=== PATIENT | male | born 1960 | race Caucasian/White ===

== ENCOUNTER 2018-03-24 01:54 | Outpatient (CLI) | payer BC, SELFPAY ==
[2018-03-25 10:10] LABS: PSA, Screening 1.3 ng/ml (0-3.5)
== END 2018-03-24 02:14 ==
PROVIDERS: PCP Emergency Medicine; Visit Provider Emergency Medicine
DX: Z12.5 Encounter for screening for malignant neoplasm of prostate (principal); N40.0 Benign prostatic hyperplasia without lower urinary tract symptoms
CPT/HCPCS: 36415; 84153

== ENCOUNTER 2019-04-01 02:15 | Outpatient (CLI) | payer BC, SELFPAY ==
[2019-04-01 11:36] LABS: Calculated LDL 119 mg/dL; Cholesterol 189 mg/dL (50-200); HDL Cholesterol 59 mg/dL (40-60); Triglyceride 56 mg/dL (30-150)
== END 2019-04-01 02:35 ==
PROVIDERS: PCP Emergency Medicine; Visit Provider Emergency Medicine
DX: Z00.00 Encounter for general adult medical examination without abnormal findings (principal); Z13.220 Encounter for screening for lipoid disorders
CPT/HCPCS: 36415; 80061

== ENCOUNTER 2019-06-20 09:08 | Day surgery (SDC) | payer BC, SELFPAY ==
--- NOTE | 2019-06-20 06:58 | W.COLOREPORT ---
Date of service: 06/20/19 Time of Service: 10:50 Colonoscopy Report Date of procedure: 06/20/19 Pre-op diagnosis general: Hx of polyps Post-op diagnosis procedure note: same (and mild diverticulosis) Procedure: Colonoscopy with polypectomy Surgeon: Asia Hanley Anesthesia proc note operative: other (General/ ASA 2/ Kia Allen CRNA) Estimated blood loss (mL): 3 Pathology: other (Transverse and descending polyp) Complications: None Disposition: same day Indications: 59 y/o male with history of BPH and anxiety presents for colonoscopy screening pre-op. His last screening was in 2013, which was remarkable for tubular adenoma. He denies a family history of colon cancer. He denies any changes in bowel habits including bloody or black tarry stools, abdominal pain, diarrhea or constipation. He denies constitutional symptoms. Denies use of marijuana or any other recreational or illegal drugs. Risks, benefits and complications have been reviewed. Complications include but are not limited to bleeding, pain, perforation, missed small lesion/polyp, sore throat, aspiration and adverse reaction to the medications. Questions were entertained and answered to their satisfaction and they wished to proceed. No guarantees were given or implied. Prep: Miralax/Dulcolax Procedure Start Time: 10:50 Procedure End Time: 11:14 Retraction Time: 17 minutes Findings: 2 small polyps and mild diverticulosis Procedure Description: After informed consent was obtained the patient was taken to the procedure room and placed in a left decubitous position. Monitors were applied and a time out was done. The patients name, date of , procedure, allergies to medications and metal in their body was reviewed. The patient was then sedated. Once sedated and comfortable a rectal exam was done. External exam was normal. Internal exam revealed a normal sphincter tone and no palpable masses. The prostate felt smooth. The scope was then introduced and retro-flexed. No internal hemorrhoids, masses or polyps were identified on retro-flexion. The scope was then advanced to the cecum without difficulty. The TI and appendiceal orifice were identified. The prep was good. The scope was then slowly retracted over 17 minutes back into the rectum. Polyps were removed with cold forceps in the transverse and descending colon. The scope was removed and the patient was woken up and taken back to Same day surgery in stable condition. The patient tolerated the procedure well and there were no immediate complications. Follow up: The patient should follow up in 3-5 years unless they develop changes in bowel habits or other new gastrointestinal complaints.
--- NOTE | 2019-06-20 06:59 | W.PM.DSUDISC ---
Discharge Plan Disposition Patient Disposition: HOME Condition: Good Discharge Details Reason For Visit: Hx of polyps Attending Provider: Asia Hanley Primary Care Provider: Ruperto Rizo Home Meds and New Rx's Prescriptions: Continued tamsulosin [Flomax] 0.4 mg capsule 0.4 mg PO DAILY RF: 0 ibuprofen 200 MG tablet 200 mg PO PRN RF: 0 Shingrix (PF) 50 mcg/0.5 mL suspension for reconstitution 0.5 ml IM ONCE Qty: 1 RF: 0 Discontinued bisacodyl [Dulcolax (bisacodyl)] 5 mg tablet,delayed release (DR/EC) 5 mg PO ONCE Qty: 4 RF: 0 polyethylene glycol 3350 17 gram/dose powder 238 g PO ONCE Qty: 238 RF: 0 Discharge Instructions Instructions: Colonoscopy (DC), Diverticulosis (DC), Colorectal Polyps (DC) Additional Instructions: Findings: 2 small polyps mild diverticulosis Follow up: 3-5 years Please call if you develop: fevers >101.5 Nausea or Vomiting Abdominal pain that is not transient DAY SURGERY UNIT POST ENDOSCOPY INSTRUCTIONS 1. Because there will be medication in your system for the next 24 hours, you may feel a little sleepy. Your coordination will be affected. Therefore: a. Do not drive or operate dangerous equipment for 24 hours. b. Do not drink alcohol beverages for 24 hours (not even beer). c. Plan to go home and rest for the day. 2. Generally there are no restrictions on your activity after a day or so has gone by, but you may feel a bit fatigued for a few days. 3 After you arrive home you may have a light meal and return to a normal diet as you can tolerate it without feeling sick to your stomach. 4. After surgery, you may feel pain or discomfort. This should be only transient, but if it persists please contact your doctor. 5. If there are any questions regarding the findings of your procedure, please feel free to contact your doctor. 6. If you are unable to contact your doctor with a problem, contact the hospital at [phone]. 7. Continue all your regular medications unless directed otherwise. I understand the above instructions and have no questions. Signature of Patient or Responsible Adult Escort Date/Time Name of Responsible Adult Escort Signature of Nurse Date/Time Activity:: Activity as Tolerated Diet:: High Fiber Diet Discharge Orders Discharge Orders: Discharge Order (Routine); Ordered 06/20/19 Ordered By: Asia Hanley DS: Diagnosis Discharge Diagnosis (1) Colonoscopy - MAC: Status: None (2) Diverticulosis: Status: Acute (3) Colorectal polyps: Status: Acute
--- NOTE | 2019-06-20 07:03 | HPE_ITS ---
Date of service: 06/20/19 Time of Service: 10:18 Assessment and Plan Assessment and plan (1) Hx of colonic polyps: Status: Acute Assessment and plan: 59 y/o male with history of BPH and anxiety presents for colonoscopy screening pre-op. His last screening was in 2013, which was remarkable for tubular adenoma. He denies a family history of colon cancer. He denies any changes in bowel habits including bloody or black tarry stools, abdominal pain, diarrhea or constipation. He denies constitutional symptoms. Denies use of marijuana or any other recreational or illegal drugs. P\\ Colonoscopy under sedation Risks, benefits and complications have been reviewed. Complications include but are not limited to bleeding, pain, perforation, missed small lesion/polyp, sore throat, aspiration and adverse reaction to the medications. Questions were entertained and answered to their satisfaction and they wished to proceed. No guarantees were given or implied. History of Present Illness Narrative: 59 y/o male with history of BPH and anxiety presents for colonoscopy screening pre-op. His last screening was in 2013, which was remarkable for tubular adenoma. He denies a family history of colon cancer. He denies any changes in bowel habits including bloody or black tarry stools, abdominal pain, diarrhea or constipation. He denies constitutional symptoms. Denies use of marijuana or any other recreational or illegal drugs. He denies chest pain, palpitations, dyspnea or dyspnea with exertion. He exercises regularly, several times per week. He denies prior history or family history of adverse reactions or complications with anesthesia. He denies having any implanted metal in his body. Patient seen today and there have been no changes in his health since he was seen in the office Review of Systems Constitutional Constitutional: Denies fever(s) Cardiovascular Cardiovascular: Denies chest pain, Denies dyspnea and Denies dyspnea on exertion Respiratory Respiratory: Denies chest congestion, Denies cough, Denies dyspnea and Denies dyspnea on exertion [facility] Medical History Annual physical exam (Acute) Surgical History Arthroplasty of knee pt. denies he has had this procedure BUNIONECTOMY 07/28/14; DR. MENSAH RIGHT FOOT. 07/27/15; DR. MENSAH; HARDWARE REMOVAL AND PARKER OSTEOTOMY;RIGHT FOOT Colonoscopy - MAC (~06/20/19) 02/17/14 Excision, Neuroma 07/28/14; DR. MENSAH RIGHT FOOT Family History Mother No problems noted. Father , 69 Diabetes Alcohol abuse Hyperlipidemia Myeloma Hypertension Sister No problems noted. Sister No problems noted. Sister No problems noted. Brother No problems noted. Son No problems noted. Son No problems noted. Daughter No problems noted. Social History Smoking/Tobacco Use Status: Never Second Hand Exposure: Yes Alcohol Intake: current Alcohol Intake frequency: 0-2 drinks per day Alcohol type: beer and wine Drug use: Never Substance use type: does not use Caregiver/Support person: No Household members: spouse and children Housing: house Pets and animals: Yes Pets and animals: cat(s), dog(s) and farm animals Sexually active: Yes Do you think of yourself as: straight/heterosexual Current gender identity: male What is your relationship status?: How often do you talk on the phone with friends or family?: twice per week How often do you get together with friends or relatives?: twice per week How often do you attend holiness or hoahaoism services?: 4 or more times per year Do you belong to any clubs or organized social groups?: no Panel score (0-1 are the most socially isolated patients): 3 What type of physical activity do you participate in: bicycling and swimming Duration: 30-45 minutes/day Frequency: 5-6 times per week Donna/Yarsani: Religion Special donna needs: No Seatbelt use: always Helmet use: Yes Helmet use: always Drive intox or ride w/intox regional truck driver: No Do you feel safe at home: Yes Do you feel safe in your relationship?: Yes Meds Home Medications and Allergies Home Medications Medication Instructions Recorded Confirmed Type ibuprofen 200 mg PO PRN 10/20/13 06/20/19 History varicella-zoster [id number] (PF) 50 0.5 ml IM ONCE #1 each 03/03/19 06/20/19 Rx mcg/0.5 mL IM susp, kit tamsulosin 0.4 mg capsule 0.4 mg PO DAILY cap 03/23/19 06/20/19 History Allergies Allergy/AdvReac Type Severity Reaction Status Date / Time oxycodone Allergy Intermediate Itching Verified 06/14/19 14:21 Exam Const General: cooperative, comfortable and no acute distress Orientation: alert and oriented x3 Resp Effort & Inspection: normal respiratory effort Auscultation: clear to auscultation bilaterally Cardio Rate: regular rate Rhythm: regular rhythm Heart Sounds: no gallops, no murmurs and no rubs
[2019-06-20 09:38] VITALS: BP 112/72; PULSE 50; RESP 16; TEMP 36.4; O2SAT 98
[2019-06-20] MEDS: Lactated Ringers 1,000 ML 80 ML IV (10:40)
--- NOTE | 2019-06-20 11:04 | BOWEL_PTH ---
PATIENT: Victoriano Song LOC: [facility] U#:[id number] AGE/SX: 59/M ROOM: RE06/20/[address]: Asia Hanley MD : [id number] BED: DIS: 06/20/2019 SPEC #: [id number] RECD: 06/20/19 12:48 STATUS: MARY LOU REQ #: [id number] MIGEL: 06/20/19 11:[address]: Asia Hanley DEPT: Surgical Specimen RECD BY: Samantha Higginbotham ENTERED: 06/20/19 12:50 SP TYPE: Bowel OTHR DR: Ruperto Rizo DO Tissues: 1 - BIOPSY BOWEL 2 - BIOPSY BOWEL Procedures: GROSS AND MICRO LEVEL 4 Comments: [id number]
[2019-06-20 11:59] VITALS: BP 109/73; PULSE 47; RESP 16; TEMP 36.3; O2SAT 96
== END 2019-06-20 12:00 | disposition home or self-care (01) ==
LOC: SUR 09:08
PROVIDERS: PCP Emergency Medicine; Visit Provider Surgery
PROC: 0DJD8ZZ Inspection of Lower Intestinal Tract, Via Natural or Artificial Opening Endoscopic (ICD-10-PCS; CPT 45378; principal; 2019-06-20 10:30)
DX: Z12.11 Encounter for screening for malignant neoplasm of colon (principal); Z86.010 Personal history of colon polyps; K63.5 Polyp of colon; K57.30 Diverticulosis of large intestine without perforation or abscess without bleeding
CPT/HCPCS: 45380; 88305; NC

== ENCOUNTER 2021-04-08 01:37 | Outpatient (CLI) | payer BC, SELFPAY ==
--- NOTE | 2021-04-08 08:45 | DI.RAD_ITS ---
Exam(s) XR KNEE RT 3V AP,LAT,CATINA EXAM: XR KNEE RT 3V AP,LAT,CATINA CLINICAL HISTORY: knee pain PARESH, M25.561, M25.562. TECHNIQUE: 2D digital imaging was performed. COMPARISON: CR XR KNEE LT 3V AP,LAT,CATINA from 04/08/2021 FINDINGS: Three views of the right knee reveal no evidence of fracture or obvious joint effusion. Mild degener ative changes in the medial compartment and patellofemoral compartment. Subtle chondrocalcinosis in the medial compartment. Mild osteopenia. No osteochondral defects. No lytic osseous lesions eviden t. IMPRESSION: DATA REPOSITORY: RADIATION DOSE DELIVERED:
--- NOTE | 2021-04-08 08:45 | DI.RAD_ITS ---
Exam(s) XR KNEE LT 3V AP,LAT,CATINA EXAM: XR KNEE LT 3V AP,LAT,CATINA CLINICAL HISTORY: knee pain, PARESH, M25.561, M562. TECHNIQUE: 2D digital imaging was performed. COMPARISON: No exams were available for comparison FINDINGS: No evidence of fracture nor prominent joint effusion but there is calcification noted in the quadrice ps tendon extending for distance of approximately 6 cm above the superior pole the patella. Moderate degenerative changes are noted in the medial and patellofemoral compartments and mild degenerative c hanges in the lateral compartment. Chondrocalcinosis is noted. No ominous osseous lesions. IMPRESSION: DATA REPOSITORY: RADIATION DOSE DELIVERED:
== END 2021-04-08 01:57 ==
PROVIDERS: PCP Emergency Medicine; Visit Provider Emergency Medicine
DX: M25.561 Pain in right knee (principal); M25.562 Pain in left knee; M17.0 Bilateral primary osteoarthritis of knee
CPT/HCPCS: 73562

== ENCOUNTER 2021-04-08 03:03 | Outpatient (CLI) | payer BC, SELFPAY ==
[2021-04-08 22:03] LABS: PSA, Screening 2.3 ng/mL (0.0-4.5)
== END 2021-04-08 03:04 | disposition home or self-care (01) ==
LOC: LBO 03:03
PROVIDERS: PCP Emergency Medicine; Visit Provider Emergency Medicine
DX: Z12.5 Encounter for screening for malignant neoplasm of prostate (principal)
CPT/HCPCS: 36415; 84153

== ENCOUNTER 2022-04-22 02:04 | Outpatient (CLI) | payer BC, SELFPAY ==
[2022-04-22 12:30] LABS: Calculated LDL 118 mg/dL (<100); Cholesterol 187 mg/dL (<200); Glucose 92 mg/dL (74-106); HDL Cholesterol 52 mg/dL (40-60); Triglyceride 87 mg/dL (<150)
[2022-04-22 18:56] LABS: PSA, Screening 2.4 ng/mL (<=4.5)
== END 2022-04-22 02:05 | disposition home or self-care (01) ==
LOC: LOS 02:05
PROVIDERS: PCP Nurse Practitioner; Visit Provider Family Medicine
DX: E78.5 Hyperlipidemia, unspecified (principal); R73.9 Hyperglycemia, unspecified; Z12.5 Encounter for screening for malignant neoplasm of prostate
CPT/HCPCS: 36415; 80061; 82947; 84153

== ENCOUNTER 2023-01-26 15:52 | Outpatient (CLI) | payer BC, SELFPAY ==
--- NOTE | 2023-01-26 15:42 | DI.RAD_ITS ---
Exam(s) XR KNEE RT 4V AP,LAT,CATINA,PAT EXAM: XR KNEE RT 4V AP,LAT,CATINA,PAT CLINICAL HISTORY: Rt knee pain, M25.561, evaluate effusion ? tib/fib fx. TECHNIQUE: 2D digital imaging was performed. COMPARISON: CR XR KNEE RT 3V AP,LAT,CATNIA from 04/08/2021 FINDINGS: Four views. No evidence of acute fracture. There appears be a small amount of increased joint fluid. Calcificat ion is again noted in the soft tissues above and lateral to the knee. There are mild degenerative ch anges in the knee joint medial lateral compartments. More prominent narrowing is seen in the patello femoral compartment lateral aspect, as seen on the merchant's view. No osteochondral defects. No os seous lesions. IMPRESSION: Degenerative changes, most evident in the patellofemoral compartment. DATA REPOSITORY: RADIATION DOSE DELIVERED:
== END 2023-01-26 16:12 ==
LOC: DI 15:52
PROVIDERS: PCP Nurse Practitioner Family; Visit Provider Nurse Practitioner Family
DX: M25.561 Pain in right knee (principal); M17.11 Unilateral primary osteoarthritis, right knee; M25.461 Effusion, right knee
CPT/HCPCS: 73564

== ENCOUNTER 2023-07-10 02:21 | Outpatient (CLI) | payer BC, SELFPAY ==
[2023-07-10 08:20] LABS: HCT 42.2 % (40.0-50.0); HGB 14.1 g/dL (13.5-17.5); MCH 29.2 pg (27.0-33.0); MCHC 33.4 % (32.0-36.0); MCV 87 fL (80-95); MPV 10.7 fL (8.0-11.0); Platelet Count 223 10^3/uL (130-400); RBC 4.83 10^6/uL (4.36-5.78); RDW 12.9 % (11.8-14.1); RDW-SD 40.9 fL; WBC 5.19 10^3/uL (4.4-10.8)
[2023-07-10 08:46] LABS: Anion Gap 4.7 mmol/L (3-11); BUN 11 mg/dL (7-18); CO2 29.3 mmol/L (21.0-32.0); CREATININE 1.2 mg/dL (0.70-1.30); Calculated LDL 123 mg/dL (<100); Chloride 104 mmol/L (98-107); Cholesterol 198 mg/dL (<200); Estimated GFR 67.53 (mL/min/1.73m2); Glucose 95 mg/dL (74-106); HDL Cholesterol 63 mg/dL (40-60); Potassium 4.4 mmol/L (3.5-5.1); Sodium 138 mmol/L (136-145); Triglyceride 63 mg/dL (<150)
[2023-07-10 18:00] LABS: PSA, Screening 2.3 ng/mL (<=4.5)
== END 2023-07-10 02:22 | disposition home or self-care (01) ==
LOC: LBO 02:21
PROVIDERS: PCP Nurse Practitioner Family; Visit Provider Nurse Practitioner Family
DX: K57.90 Diverticulosis of intestine, part unspecified, without perforation or abscess without bleeding (principal); N40.0 Benign prostatic hyperplasia without lower urinary tract symptoms; Z00.00 Encounter for general adult medical examination without abnormal findings
CPT/HCPCS: 36415; 80048; 80061; 84153; 85027

== ENCOUNTER 2024-04-29 02:04 | Outpatient (CLI) | payer BC, SELFPAY ==
[2024-04-29 12:27] LABS: HGB 14.5 g/dL (13.5-17.5); MCH 29.7 pg (27.0-33.0); MCV 90 fL (80-95); Platelet Count 239 10^3/uL (130-400); RBC 4.88 10^6/uL (4.36-5.78); RDW 12.8 % (11.8-14.1); RDW-SD 42.1 fL; WBC 6.42 10^3/uL (4.4-10.8)
[2024-04-29 12:40] LABS: Hemoglobin A1C 5.5 % (<5.7)
[2024-04-29 12:47] LABS: ALT 28 U/L (16-63); AST 30 U/L (15-37); Albumin 3.5 g/dL (3.4-5.0); Alkaline Phosphatase 105 U/L (46-116); Anion Gap 7.6 mmol/L (3-11); BUN 14 mg/dL (7-18); Bilirubin, Total 0.63 mg/dL (0.2-1.0); CO2 27.4 mmol/L (21.0-32.0); CREATININE 1.1 mg/dL (0.70-1.30); Calcium 9.3 mg/dL (8.5-10.1); Calculated LDL 136 mg/dL (<100); Chloride 109 mmol/L (98-107); Cholesterol 216 mg/dL (<200); Glucose 95 mg/dL (74-106); HDL Cholesterol 69 mg/dL (40-60); Potassium 4.2 mmol/L (3.5-5.1); Sodium 144 mmol/L (136-145); TSH (W/Ref FT4) 2.13 uIU/mL (0.36-3.74); Total Protein 7.4 g/dL (6.4-8.2); Triglyceride 58 mg/dL (<150)
[2024-04-29 19:06] LABS: PSA, Screening 2.2 ng/mL (<=4.5)
== END 2024-04-29 02:05 | disposition home or self-care (01) ==
LOC: LOS 02:04
PROVIDERS: PCP Nurse Practitioner Family; Visit Provider Nurse Practitioner Family
DX: Z00.00 Encounter for general adult medical examination without abnormal findings (principal); N40.0 Benign prostatic hyperplasia without lower urinary tract symptoms; K57.90 Diverticulosis of intestine, part unspecified, without perforation or abscess without bleeding; K21.9 Gastro-esophageal reflux disease without esophagitis; F41.9 Anxiety disorder, unspecified; R00.0 Tachycardia, unspecified; Z12.5 Encounter for screening for malignant neoplasm of prostate
CPT/HCPCS: 36415; 80053; 80061; 84153; 85027; 83036; 84443

== ENCOUNTER 2024-04-29 13:21 | Emergency (ER) | payer BC, SELFPAY ==
--- NOTE | 2024-04-29 13:15 | RT.EKG_ITS ---
APPROVED REPORT Exam: Resting ECG Reason for Exam: fast hr Patient Location: E HR:59 bpm ECG Measurements Heart Rate 59 AXIS NE 171 P 54 QRSd 86 QRS 79 QT 430 T 53 QTc 425 Conclusion Sinus bradycardia, rate 59 No interval abnormalities, no STEMI
[2024-04-29 13:22] VITALS: BP 121/75; PULSE 62; RESP 18; TEMP 36.8; O2SAT 99
--- NOTE | 2024-04-29 14:11 | ED.GENADUL_ITS ---
Discharge Plan Disposition Patient Disposition: Home Condition: Stable Discharge Details Clinical Impression: Tachycardia Primary Care Provider: Kimmie Viveros ED Provider: Samantha Ziegler Home Meds and New Rx's Prescriptions: Continued alprazolam 0.25 mg tablet 0.25 mg PO DAILY PRN (Reason: anxiety) Qty: 14 0RF ibuprofen 200 MG tablet 200 mg PO PRN Discharge Instructions Additional Instructions: Please follow-up with your primary care physician, unfortunately we are unable to place the Holter monitor in the emergency department today secondary to need for prior authorization I placed a call to your primary care physician to follow-up on the prior authorization Your diagnostic labs including CBC, chemistry panel, thyroid, and magnesium are reassuring, this includes your electrolytes which are all within normal limits including your thyroid I recommend holding off on moderate to heavy exertion until you are cleared by your primary care physician Should you develop chest pain, shortness of breath, or persistent tachycardia in the absence of exercise I do recommend more urgent reevaluation Referrals: Kimmie Viveros, RADIO DISPATCHER [Primary Care Provider] - 1 day HPI General Date/Time Provider Initiated Documentation: 04/29/24 13:31 . HPI Narrative: This healthy 64-year-old male presents with report of tachycardia with exertion intermittently over the course of the past week. Patient denies any associated chest pain or shortness of breath. He states on the initial presentation on he had just finished cardio and was performing squats when he felt his heart racing and left at his Darius watch and noticed that his heart rate was in the 180s. He states that he stopped Related Data Home Medications ?Medication ?Instructions ?Recorded ?Confirmed ibuprofen 200 mg tablet 200 mg PO PRN 10/20/13 04/29/24 alprazolam 0.25 mg tablet 0.25 mg PO DAILY PRN anxiety #14 04/25/24 04/29/24 tabs Previous Rx's ?Medication ?Instructions ?Recorded alprazolam 0.25 mg tablet 0.25 mg PO DAILY PRN anxiety #14 04/25/24 tabs Allergies Allergy/AdvReac Type Severity Reaction Status Date / Time oxycodone Allergy Intermediate Itching Verified 04/29/24 13:29 General Stated Complaint: Arrhythmia SARAHY: 3 Exam Narrative Exam Narrative: Alert and oriented 64-year-old male no acute distress, pupils equal round reactive to light and accommodation, cardiac rate rhythm regular, no murmurs or rubs, no abdominal tenderness, alert and oriented x 4, no calf swelling or tenderness, no peripheral edema, distal pulses intact Course Vital Signs Vital signs: Vital Signs Temperature 36.8 C 04/29/24 13:22 Pulse 62 04/29/24 13:22 Respiratory Rate 18 04/29/24 13:22 Blood Pressure 121/75 04/29/24 13:22 Pulse Oximetry 99 04/29/24 13:22 Temperature 36.8 C 04/29/24 13:22 Temperature Source Oral 04/29/24 13:22 Pulse 62 04/29/24 13:22 Respiratory Rate 18 04/29/24 13:22 Respiratory Effort Normal, Non-Labored 04/29/24 13:29 Blood Pressure 121/75 04/29/24 13:22 Blood Pressure Position Sitting 04/29/24 13:22 Pulse Oximetry 99 04/29/24 13:22 Oxygen Delivery Method Room Air 04/29/24 13:22 Oxygen Flow Rate 0 04/29/24 13:22 Lab/Test Results Lab/Test Results: Laboratory Tests Range/Units 04/29/24 13:32 WBC Cancelled RBC Cancelled Hgb Cancelled Hct Cancelled MCV Cancelled MCH Cancelled MCHC Cancelled RDW Cancelled Plt Count Cancelled MPV Cancelled Immature Gran % Cancelled Neutrophils % Cancelled Band Neutrophils % Cancelled Lymphocytes % Cancelled Atypical Lymphs % Cancelled Monocytes % Cancelled Eosinophils % Cancelled Basophils % Cancelled Metamyelocytes % Cancelled Myelocytes % Cancelled Promyelocytes % Cancelled Other Cells % Cancelled Nucleated RBC % Cancelled Absolute Neutrophils Cancelled Absolute Lymphocytes Cancelled Absolute Monocytes Cancelled Absolute Eosinophils Cancelled Absolute Basophils Cancelled RBC Morphology Cancelled Polychromasia Cancelled Hypochromasia Cancelled Poikilocytosis Cancelled Basophilic Stippling Cancelled Anisocytosis Cancelled Microcytosis Cancelled Macrocytosis Cancelled Spherocytes Cancelled Tear Drop Cells Cancelled Ovalocytes Cancelled Stomatocytes Cancelled [place] Bodies Cancelled Sandra Cells/Echinocytes Cancelled Acanthocytes (Spur) Cancelled Schistocytes Cancelled Sodium Cancelled Potassium Cancelled Chloride Cancelled Carbon Dioxide Cancelled Anion Gap Cancelled BUN Cancelled Creatinine Cancelled Est GFR (CKD-EPI 2020) Cancelled Glucose Cancelled Calcium Cancelled Total Bilirubin Cancelled AST Cancelled ALT Cancelled Alkaline Phosphatase Cancelled Total Protein Cancelled Albumin Cancelled TSH Cancelled Medical Decision Making 64-year-old male presenting asymptomatic with report of intermittent tachycardia. Scheduled for Holter monitor but pending prior authorization this has not been placed yet. EKG with a rate of 59, no concerning dysrhythmia noted throughout this encounter. Patient had diagnostic labs ordered by his PCP prior to assessment. These labs including CBC, chemistry, and thyroid are all within normal limits, I did add on a magnesium which was also within normal limits. I called patient's PCP to encourage them to follow-up on the prior authorization for Holter monitoring did attempt to place Holter monitor today however as I will not the ordering provider, I am unable to expedite this at this time. Patient's office is aware and they will follow-up closely. I did consider pulmonary embolism and we discussed performing a D-dimer as patient has a family history of factor V but has not been personally diagnosed and we will hold off at this time as patient does not have persistent tachycardia, hypoxia, or other concerning findings that would be indicative of a pulmonary embolism. I have a low clinical suspicion at this time this patient is a pulmonary embolism. Encouraged to follow-up with his primary care physician and to refrain from exertional activity until he is cleared by his doctor. Quality:SDOH Health Related Social Needs: No Data to Display PFSH All Active Problems (Updated 04/29/24 @ 14:30 by LYNDON Longo) Tachycardia (Acute) Tachycardia (Acute) Family history of factor V Leiden mutation (Acute) GERD (gastroesophageal reflux disease) (Chronic) Obrien's neuroma of right foot (Acute) BPH (benign prostatic hyperplasia) (Chronic) Knee pain, bilateral (Acute) Colorectal polyps (Acute) Diverticulosis (Acute) Hx of colonic polyps (Acute) Medical History Anxiety (10/21/13) Arthralgia of left temporomandibular joint (03/17/18) BPH loc w urin obs/LUTS Chronic seasonal allergic rhinitis due to pollen (03/11/17) Dupuytren's contracture of left hand (03/17/18) PAC (premature atrial contraction) (10/21/13) Right inguinal hernia (11/17/14) Tubular adenoma of colon (02/17/14) 02/17/14; DR. PEARCE Surgical History Arthroplasty of knee pt. denies he has had this procedure BUNIONECTOMY 07/28/14; DR. MENSAH RIGHT FOOT. 07/27/15; DR. MENSAH; HARDWARE REMOVAL AND PARKER OSTEOTOMY;RIGHT FOOT Excision, Neuroma 07/28/14; DR. MENSAH RIGHT FOOT Family History Mother Cancer Father , 69 Diabetes Alcohol abuse Hyperlipidemia Myeloma Hypertension Sister No problems noted. Sister No problems noted. Sister No problems noted. Brother No problems noted. Son No problems noted. Son No problems noted. Daughter No problems noted. Social History Smoking/Tobacco Use Status: Never Second Hand Exposure: Yes Smoking risk assessment performed?: Yes Alcohol Intake: current Alcohol Intake frequency: a few times a month Alcohol type: beer and wine Drug use: Never Substance use type: does not use Caregiver/Support person: No Household members: spouse and children Housing: house Communication Needs: None Do you need help understanding health information?: Never Pets and animals: Yes Pets and animals: cat(s), dog(s) and farm animals Sexually active: Yes Do you think of yourself as: straight/heterosexual Current gender identity: male What is your relationship status?: How often do you talk on the phone with friends or family?: twice per week How often do you get together with friends or relatives?: once per week How often do you attend pentecostal or judaism services?: 4 or more times per year Do you belong to any clubs or organized social groups?: no Panel score (0-1 are the most socially isolated patients): 3 What type of physical activity do you participate in: bicycling, swimming and running Duration: 45-60 minutes/day Frequency: 5-6 times per week Donna/Jainism: Anglican Special donna needs: No Seatbelt use: always Helmet use: Yes Helmet use: always Drive intox or ride w/intox double bottom driver: No Do you feel safe at home: Yes Do you feel safe in your relationship?: Yes
[2024-04-29 14:17] LABS: Magnesium 2.1 mg/dL (1.8-2.4)
== END 2024-04-29 14:42 | disposition home or self-care (01) ==
PROVIDERS: Emergency Provider Physician Assistant; PCP Nurse Practitioner Family
DX: R00.2 Palpitations (principal)
CPT/HCPCS: 80053; 93005; 99284; 83735; 84443; 85025; 93010; 99283

== ENCOUNTER 2024-05-02 01:11 | Outpatient (CLI) | payer BC, SELFPAY ==
--- NOTE | 2024-05-02 06:15 | ETT_ITS ---
APPROVED REPORT Exam: Exercise Treadmill Patient Location: Out-Patient Room/Bed: Stress Nurse: Starr Dejesus RN; Valerie Watkins RN Ordering Provider:JOHNMarcia GONZALEZ, Contact Number: [phone] BMI: 27.11 Baseline Rhythm: Sinus Bradycardia Comment: rare PAC Indications: tachycardia Medical History Medical History: GERD, anxiety, BPH Cardiac Medications: alprazolam, Allergies: oxycodone Cardiac Risk Factors: none Previous Cardiac Procedures: none Pretest Chest Pain Characteristics: No chest pain Exercise History: Physically active Physical Disabilities: none Lung Sounds: Clear to auscultation Heart Sounds: Regular Stress Test Details Test: Exercise stress testing was performed using a Shahbaz protocol. Rest Stress HR Resting HR Supine: 47 bpm Max Heart Rate (APMHR): 155 bpm Resting HR Standin bpm Target HR (85% APMHR): 132 bpm Max HR Achieved: 160 bpm % of APMHR: 103 Recovery HR: 69 bpm HR response to stress: Normal HR response to stress BP Resting BP Supine: 128/80 mmHg Resting BP Standin/78 mmHg Max BP: 154/80 mmHg Recovery BP: 120/80 mmHg BP response to stress: Normal blood pressure response to stress. ECG Resting ECG: Sinus Bradycardia Ectopy: rare PAC Stress ECG: Sinus Tachycardia ST Change: No significant ST segment changes noted Arrhythmia: frequent PACs, rare PVCs, ?SVT Recovery ECG: Sinus Rhythm Recovery ST Change: No significant ST segment changes noted Recovery Arrhythmia: frequent PACs, rare PVCs Clinical Reason for Termination: Target HR Achieved Stress Symptoms: none Exercise duration: 11 min59 sec Highest Stage Reached: Stage 4: 4.2 mph at 16% grade. Exercise capacity: 13.48 METs Angina Score: None Mcmahon Treadmill Score: 11.4 Rate Pressure Product: [id number] Stress ECG Conclusion 1. Resting electrocardiogram was normal 2. Patient exercised on the Shahbaz protocol and completed a workload of 13.48 METS 3. Normal heart rate and blood pressure response to exercise. The patient achieved greater than 100% of predicted heart rate for age 4. There was no electrocardiographic evidence of myocardial ischemia. There were no symptoms to sugg est angina 5. Rare PVCs, occasional atrial premature beats were seen Mcmahon Treadmill Score is 11.4 which is Low risk. Stress Test Summary STAGE Time (mins) Speed (mph) Grade (%) HR BP SpO2 SYMPTOMS METS Supine 47 128/80 95 Standing 51 112/78 1 3 1.7 10 84 128/78 95 4.5 2 6 2.5 12 102 142/70 7 3 9 3.4 14 114 97 10 4 12 4.2 16 158 13 1 min recovery 121 140/60 3 min recovery 74 154/80 6 min recovery 69 120/80 Patient asymptomatic throughout entirety of test. Patient noted to have ? three runs of SVT which res olved without intervention. Heart rate back to baseline quickly in recovery. Patient left ambulatory in no acute distress.
== END 2024-05-02 01:31 ==
LOC: DI 01:11
PROVIDERS: PCP Nurse Practitioner Family; Visit Provider Nurse Practitioner Family
DX: R00.0 Tachycardia, unspecified (principal)
CPT/HCPCS: 93017

== ENCOUNTER 2024-05-31 07:58 | Outpatient (CLI) | payer BC, SELFPAY ==
--- NOTE | 2024-05-31 10:39 | W.CARDEVENT ---
Date of service: 05/31/24 Time of Service: 10:40 Cardiac Event Recorder Referring Provider:: Kimmie Viveros Indications:: Tachycardia and palpitations Cardiac Event Note: This is a cardiac event monitor. Patient was monitored for 6 days and 21 hours. predominant rhythm was sinus with an average heart rate of 62. Minimum was 41, maximum 135 There were rare isolated atrial and ventricular ectopic beats There was a brief run of accelerated idioventricular rhythm which occurred around 2 AM and lasted 9 beats in length There were several episodes of supraventricular tachycardia. Maximum rate was 192. There was no atrial fibrillation, no high-grade AV block, no pauses greater than 3 seconds Reported symptoms had no correlation to any dysrhythmia
== END 2024-05-31 07:59 | disposition home or self-care (01) ==
LOC: CARDOPNVT 07:58
PROVIDERS: PCP Nurse Practitioner Family; Visit Provider Internal Medicine Cardiovascular Disease
DX: I47.10 Supraventricular tachycardia, unspecified

== ENCOUNTER 2024-09-26 11:56 | Day surgery (SDC) | payer BC, SELFPAY ==
--- NOTE | 2024-09-26 06:26 | ANES.PREOP_ITS ---
General Info Date of Service Date Performed: 09/26/24 Height: 5 ft 11 in Weight: 88.904 kg Body Mass Index (BMI): 27.3 Surgical Procedure: Operation Date: 09/26/24 13:50 Proposed Procedure Side Surgeon p Colonoscopy Jase Rosa MD Meds Allergies and Home Medications Allergies Allergy/AdvReac Type Severity Reaction Status Date / Time oxycodone Allergy Intermediate Itching Verified 09/26/24 12:54 Home Medication ?Medication ?Instructions ?Recorded ibuprofen 200 mg tablet 200 mg PO PRN 10/20/13 Current Visit Medications: Current Medications Generic Name Dose Route Start Last Admin Trade Name Freq PRN Reason Stop Dose Admin Ringer's Solution 1,000 mls @ 80 mls/hr 09/26/24 06:00 IV 09/26/24 23:59 INFUSION RADHA IV Miscellaneous Supplies 1 each 09/26/24 06:00 Iv Access IV 09/26/24 23:59 DIRECTED RADHA Sodium Chloride 0 ml 09/26/24 06:00 Normal Saline Flush 10 Ml Syr IV 09/26/24 23:59 PRN PRN Sodium Chloride 0 ml 09/26/24 06:00 Normal Saline 10 Ml Vial IJ 09/26/24 23:59 DIRECTED PRN Sterile Water 0 ml 09/26/24 06:00 Water,Injection,Sterile 10 Ml Vial IJ 09/26/24 23:59 DIRECTED PRN PFSH Active Problems Active Problems: Problem Status Onset Code Encounter for screening colonoscopy Acute Z12.11 SVT (supraventricular tachycardia) Chronic I47.10 Tachycardia Acute R00.0 Family history of factor V Leiden mutation Acute Z83.2 GERD (gastroesophageal reflux disease) Chronic K21.9 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 PEARCE BPH loc w urin obs/LUTS Surgical History Surgical History Excision, Neuroma 07/28/14; DR. MENSAH RIGHT FOOT BUNIONECTOMY 07/28/14; DR. MENSAH RIGHT FOOT. 07/27/15; DR. MENSAH; HARDWARE REMOVAL AND PARKER OSTEOTOMY;RIGHT FOOT Arthroplasty of knee pt. denies he has had this procedure Tobacco Smoking/Tobacco Use Status: Never Passive smoking exposure: Yes Second hand exposure: Yes Alcohol Alcohol Intake: current Alcohol intake frequency: a few times a month Alcohol type: beer and wine Substance Use Substance use: Never Substance use type: does not use Vital Signs and Lab Results Vital Signs Most Recent Vital Signs in EMR: Temp Pulse Resp BP Pulse Ox 36.2 C L 52 L 12 132/83 99 09/26/24 12:16 09/26/24 12:16 09/26/24 12:16 09/26/24 12:16 09/26/24 12:16 Lab Results Blood Type / Crossmatch: No Data to Display Complete Blood Count: 2 No Data to Display Complete Metabolic Panel: No Data to Display Liver Function Panel: No Data to Display Coagulation Panel: No Data to Display Cardiac Panel: No Data to Display Arterial Blood Gas: No Data to Display Venous Blood Gas: No Data to Display Pancreas Panel: No Data to Display Thyroid Panel: No Data to Display Infectious Disease: No Data to Display Blood Cultures: No Data to Display Toxicology Panel: No Data to Display Anesthesia Assessment and Plan Anesthesia History Personal History: No History of Anesthesia Complications Family History: No Family History of Anesthesia Complications Exercise Tolerance Exercise Tolerance: Metabolic Equivalents>4 Cardiac & Pulmonary Exam Cardiac Exam: Normal S1/S2 Heart Sounds Pulmonary Exam: Clear Bilateral Breath Sounds Implantable Cardiac Device Does patient have a Pacemaker or an ICD?: No Airway Exam Known Difficult Airway: No Mallampati Class: 3 Mouth Opening: Narrow (< 3cm) Thyromental Distance: Greater than 3 cm Neck Range of Motion: Full ROM Neck Circumference: Normal Teeth Condition: Normal Dentition ASA Classification ASA Score: ASA 2 Emergency Case?: No NPO Status NPO Status: NPO Clears >2 hours, Solids >8 hours Anesthesia Plan Resuscitation Status: Full Code Anesthesia Technique: General Anesthesia Airway Planned: Natural Airway Monitors Used: Standard Monitors Preoperative Comments:: 64 yo male for colo. Sig PMHx: SVT, GERD (well controlled ), Factor V (doesn?t have), anxiety, BPH. never smoker, occ EtOH. EKG: Sinus fahad. Stress: 13.48 METS, no ECG evidence or symptoms of ischemia Previous Anes: - colo, prop, glyco, natural airway, no issues. - foot hardware, fent/midaz, prop, natural airway, no issue.s
[2024-09-26 12:16] VITALS: BP 132/83; PULSE 52; RESP 12; TEMP 36.2; O2SAT 99
[2024-09-26 12:27] VITALS: BMI 27.3
--- NOTE | 2024-09-26 12:32 | SCONE_ITS ---
Date of service: 09/26/24 Time of Service: 12:32 Assessment and Plan Assessment and plan (1) Encounter for screening colonoscopy: Status: Acute Assessment and plan: 64-year-old man without symptoms due for surveillance colonoscopy because of personal history of adenomatous polyps. If no polyps are found this time around, I am going to recommended 10-year follow-up. Overall plan: Colonoscopy History of Present Illness Narrative: 64-year-old man is here for a surveillance colonoscopy. He has a personal history of colorectal polyps 2 times ago. He has no symptoms of concern. His last colonoscopy was reportedly normal which is some mild diverticular disease. No family history colon cancer. No intra-abdominal surgeries PFSH All Active Problems Encounter for screening colonoscopy (Acute) SVT (supraventricular tachycardia) (Chronic) Tachycardia (Acute) Family history of factor V Leiden mutation (Acute) GERD (gastroesophageal reflux disease) (Chronic) Obrien's neuroma of right foot (Acute) BPH (benign prostatic hyperplasia) (Chronic) Knee pain, bilateral (Acute) Colorectal polyps (Acute) Diverticulosis (Acute) Hx of colonic polyps (Acute) Medical History Anxiety (10/21/13) Arthralgia of left temporomandibular joint (03/17/18) Chronic seasonal allergic rhinitis due to pollen (03/11/17) Dupuytren's contracture of left hand (03/17/18) PAC (premature atrial contraction) (10/21/13) Right inguinal hernia (11/17/14) Tubular adenoma of colon (02/17/14) 02/17/14; DR. PEARCE BPH loc w urin obs/LUTS Surgical History Excision, Neuroma 07/28/14; DR. MENSAH RIGHT FOOT BUNIONECTOMY 07/28/14; DR. MENSAH RIGHT FOOT. 07/27/15; DR. MENSAH; HARDWARE REMOVAL AND PARKER OSTEOTOMY;RIGHT FOOT Arthroplasty of knee pt. denies he has had this procedure Family History Mother Cancer Father , 69 Diabetes Alcohol abuse Hyperlipidemia Myeloma Hypertension Sister No problems noted. Sister No problems noted. Sister No problems noted. Brother No problems noted. Son No problems noted. Son No problems noted. Daughter No problems noted. Social History Smoking/Tobacco Use Status: Never Second Hand Exposure: Yes Smoking risk assessment performed?: Yes Alcohol Intake: current Alcohol Intake frequency: a few times a week Alcohol ty pe: beer and wine Drug use: Never Substance use type: does not use Caregiver/Support person: No Household members: spouse and children Housing: house Communication Needs: None Do you need help understanding health information?: Never Pets and animals: Yes Pets and animals: cat(s), dog(s) and farm animals Sexually active: Yes Do you think of yourself as: straight/heterosexual Current gender identity: male What is your relationship status?: How often do you talk on the phone with friends or family?: twice per week How often do you get together with friends or relatives?: once per week How often do you attend muslim or scientology services?: 4 or more times per year Do you belong to any clubs or organized social groups?: no Panel score (0-1 are the most socially isolated patients): 3 What type of physical activity do you participate in: bicycling, swimming and running Duration: 45-60 minutes/day Frequency: 5-6 times per week Donna/Latter-Day: Episcopal Special donna needs: No Seatbelt use: always Helmet use: Yes Helmet use: always Drive intox or ride w/intox tank wagon driver: No Do you feel safe at home: Yes Do you feel safe in your relationship?: Yes Exam Narrative Exam Narrative: Gen: Non-toxic, comfortable and interactive Neuro: Alert and oriented x3 Psych: Good mood and affect. Good insight and understanding into condition. Chest: Non-labored breathing, no wheezing, no visible shortness of breath. Heart: Regular Results Last Vital Signs Temp 97.2 F L 09/26/24 12:16 Pulse 52 L 09/26/24 12:16 Resp 12 09/26/24 12:16 BP 132/83 09/26/24 12:16 Pulse Ox 99 09/26/24 12:16
[2024-09-26] MEDS: Lactated Ringers 1,000 ML 80 ML IV (12:33)
--- NOTE | 2024-09-26 12:56 | W.COLOREPORT ---
Date of service: 09/26/24 Time of Service: 12:56 Colonoscopy Report Procedure Description: PROCEDURES PERFORMED: 1. Colonoscopy with cold forceps polypectomy PREOPERATIVE DIAGNOSIS: Surveillance colonoscopy, colorectal polyps, diverticulosis POSTOPERATIVE DIAGNOSIS: Colon polyp, sigmoid diverticulosis, internal hemorrhoid disease SURGEON: Mildred Rosa MD INDICATION FOR PROCEDURE: the patient is a 64-year-old man with a personal history of adenomatous polyps in the past but his last colonoscopy did not have any. No family history of colon cancer and he has no symptoms. FINDINGS: The terminal ileum was normal. There is significant diverticular disease in the sigmoid colon with notable fibrosis and redundancy. No stricture or active inflammation. In the proximal sigmoid colon was a 3-5 mm sessile polyp that was removed piecemeal with cold forceps technique. Grade 1 internal hemorrhoids noted. SURVEILLANCE interval/FOLLOW-UP: Pending path results - if hyperplastic by chance then I think a repeat colonoscopy in 10 years would be acceptable. If it is another adenoma, then I would recommend repeating in 5 years. SPECIMENS: Yes EBL: Minimal COMPLICATIONS: None QUALITY of prep: Excellent Procedure in detail: The patient gave written consent and was in agreement with the indications, the potential risks as well as the benefits of the procedure. They were taken to the endoscopy suite and laid in the left lateral decubitus position. A timeout was performed and anesthesia was administered which was tolerated well. I started the procedure. Digital rectal and visual examination was performed and grossly within normal limits. A well-lubricated flexible colonoscope was then introduced and passed without any notable difficulty all the way to the cecum identified by the ileocecal valve and the appendiceal orifice. The terminal ileum was intubated and looked normal. The scope was then slowly withdrawn with the above-noted findings. The patient tolerated the procedure well and was taken to the PACU in hemodynamically stable condition.
--- NOTE | 2024-09-26 12:57 | W.PM.DSUDISC ---
Date of service: 09/26/24 Discharge Plan Disposition Patient Disposition: Home Condition: Good Discharge Details Attending Provider: Jase Rosa Primary Care Provider: Kimmie Viveros Home Meds and New Rx's Prescriptions: No Action ibuprofen 200 MG tablet 200 mg PO PRN Discharge Instructions Additional Instructions: FINDINGS: A small polyp was found and removed today. It is nothing to worry about but that is why we do these colonoscopies. Depending on the type of polyp it is, you may be recommended to come back in 5 years however if it is a completely benign polyp, then you could do 10 years. Mild diverticular disease as well as hemorrhoid disease was seen today. This is extremely common, benign and nothing needs to be done about it. Activity:: Activity as Tolerated Diet:: As Tolerated DS: Diagnosis Discharge Diagnosis (1) Encounter for screening colonoscopy: Status: Acute
--- NOTE | 2024-09-26 13:30 | BOWEL_PTH ---
PATIENT: Victoriano Song LOC: [facility] U#:[id number] AGE/SX: 64/M ROOM: RE09/26/[address]: Jase Rosa : 1960 BED: DIS: 09/26/2024 SPEC #: [id number] RECD: 09/26/24 18:05 STATUS: MARY LOU REGeovanny #: [id number] MIGEL: 09/26/24 13:[address]: Jase Rosa DEPT: Surgical Specimen RECD BY: Samantha Higginbotham ENTERED: 09/26/24 18:06 SP TYPE: Bowel OTHR DR: Kimmie Viveros, CHRISTIANO Tissues: 1 - BIOPSY BOWEL Procedures: GROSS AND MICRO LEVEL 4 Comments: [id number]
[2024-09-26 13:45] VITALS: BP 98/75; PULSE 48; RESP 16; TEMP 36.4; O2SAT 100
--- NOTE | 2024-09-26 13:54 | W.ANESPOSTOP ---
Postoperative Evaluation Date, Time and Location Date Performed: 09/26/24 Time Performed: 13:48 Patient Location: Day Surgery Unit Vital Signs Most Recent Imported Vital Signs: Most Recent Vital Signs Temp Pulse Resp BP Pulse Ox 36.4 C L 48 L 16 98/75 L 100 09/26/24 13:45 09/26/24 13:45 09/26/24 13:45 09/26/24 13:45 09/26/24 13:45 Pain Score Most Recent Pain Score: Most Recent Pain Score Pain Level 0 09/26/24 13:45 Assessment Mental Status: Awake (Alert & Oriented to Patient Baseline) Airway and Respiratory Function: Patent airway with normal (patient baseline) respiratory exam Cardiovascular Function: Hemodynamically Stable Hydration Status: Adequately Hydrated Nausea & Vomiting: No Nausea or Vomiting Pain: Pt. Denies Any Pain Peripheral Nerve Block: Patient did not receive a nerve block
[2024-09-26 14:20] VITALS: BP 122/79; PULSE 49; RESP 18; TEMP 36; O2SAT 98
== END 2024-09-26 14:40 | disposition home or self-care (01) ==
PROVIDERS: PCP Nurse Practitioner Family; Visit Provider Student in an Organized Health Care Education/Training Program
PROC: 0DJD8ZZ Inspection of Lower Intestinal Tract, Via Natural or Artificial Opening Endoscopic (ICD-10-PCS; CPT 45378; principal; 2024-09-26 13:45)
DX: Z12.11 Encounter for screening for malignant neoplasm of colon (principal); D12.5 Benign neoplasm of sigmoid colon; K57.30 Diverticulosis of large intestine without perforation or abscess without bleeding; K64.0 First degree hemorrhoids
CPT/HCPCS: 45380; 88305; J2704

== ENCOUNTER 2025-03-24 05:34 | Outpatient (CLI) | payer BC, SELFPAY ==
--- NOTE | 2025-03-24 06:00 | DI.RAD_ITS ---
Exam(s) XR KNEE RT 3V AP,LAT,CATINA EXAM: XR KNEE RT 3V AP,LAT,CATINA CLINICAL HISTORY: right knee pain, M25.561. TECHNIQUE: 2D digital imaging was performed. Three views. COMPARISON: CR XR KNEE RT 4V AP,LAT,CATINA,PAT from 01/26/2023 FINDINGS: BONES: No acute fracture is present. No bony destructive lesion is seen. JOINTS: The femoral tibial joint spaces are maintained. There is mild periarticular spurring. There is narrowing of the patellofemoral joint with periarticular spurring. No joint effusion is seen. SOFT TISSUE: Chronic appearing calcifications in the suprapatellar region. IMPRESSION: Degenerative changes at the patellofemoral joint. DATA REPOSITORY: RADIATION DOSE DELIVERED:
== END 2025-03-24 05:54 ==
LOC: DI 05:34
PROVIDERS: PCP Nurse Practitioner Family; Visit Provider Nurse Practitioner Family
DX: M25.561 Pain in right knee (principal)
CPT/HCPCS: 73562

== ENCOUNTER 2025-05-03 00:05 | Outpatient (CLI) | payer BC, SELFPAY ==
[2025-05-03 14:20] LABS: ALT 25 U/L (16-63); AST 27 U/L (15-37); Albumin 3.5 g/dL (3.4-5.0); Alkaline Phosphatase 100 U/L (46-116); Anion Gap 7.5 mmol/L (3-11); BUN 15 mg/dL (7-18); Bilirubin, Total 0.6 mg/dL (0.2-1.0); CO2 28.5 mmol/L (21.0-32.0); Calcium 9.1 mg/dL (8.5-10.1); Calculated LDL 149 mg/dL (<100); Chloride 106 mmol/L (98-107); Cholesterol 216 mg/dL (<200); Estimated GFR 74.04 (mL/min/1.73m2); Glucose 85 mg/dL (74-106); HDL Cholesterol 59 mg/dL (>or=40); Potassium 4.7 mmol/L (3.5-5.1); Sodium 142 mmol/L (136-145); Total Protein 7.3 g/dL (6.4-8.2); Triglyceride 44 mg/dL (<150)
[2025-05-04 11:05] LABS: PSA, Screening 3.5 ng/mL (<=4.5)
== END 2025-05-03 00:06 | disposition home or self-care (01) ==
LOC: LOS 00:05
PROVIDERS: PCP Nurse Practitioner Family; Visit Provider Nurse Practitioner Family
DX: Z00.00 Encounter for general adult medical examination without abnormal findings (principal); K21.9 Gastro-esophageal reflux disease without esophagitis; E78.5 Hyperlipidemia, unspecified; Z12.5 Encounter for screening for malignant neoplasm of prostate
CPT/HCPCS: 36415; 80053; 80061; 84153